=== PATIENT | female | born 1975 | race Caucasian/White ===

== ENCOUNTER → 2020-12-29 | Outpatient (REF) | payer OTHER, BC ==
[2020-12-29 18:57] LABS: APPEARANCE, URINE HAZY (CLEAR); BACTERIA, URINE AUTO 1+ (NEGATIVE); BILIRUBIN, URINE AUTO NEGATIVE (NEGATIVE); BLOOD, URINE BLOOD 2+ (NEGATIVE); COLOR, URINE YELLOW (YELLOW); GLUCOSE, URINE (UA) AUTO NEGATIVE (NEGATIVE); KETONE, URINE AUTO NEGATIVE (NEGATIVE); LEUKOCYTE ESTERASE, URINE AUTO 1+ (NEGATIVE); NITRITE, URINE AUTO NEGATIVE (NEGATIVE); PROTEIN, URINE AUTO 1+ mg/dL (NEGATIVE); RBC, URINE AUTO 29 /HPF (0-3); SPECIFIC GRAVITY URINE AUTO 1.013 (1.002-1.035); SQUAMOUS EPITHELIAL CELL UR AU 1 /HPF (0-6); UROBILINOGEN, URINE AUTO 0.2 mg/dL (0.0-2.0); WBC, URINE AUTO 23 /HPF (0-3)
== END ==
LOC: M SMT 18:07
PROVIDERS: ATTEND Nurse Practitioner Family
DX: R31.29 Other microscopic hematuria (principal)

== ENCOUNTER 2021-04-16 09:51 | Day surgery (SDC) | payer BC ==
[~2021-04-16] VITALS: Ht 165.1 cm; Wt 101.1 kg
[~2021-04-16 09:51] MED LIST: LIDOCAINE 1% MDV 20ML VIAL SQ PRN; LR 1,000 ML IV ONE; METF500T13 PO; OXYC5CAP56 PO; PANT40TA29 PO; VITMTA PO; ceFAZolin SOD 2 GM in IV 1 EA IV ONE
[2021-04-16] MEDS ORDERED: ONDANSETRON 4MG/2ML VIAL As Ordered ONE ×2 (10:03→12:42)
[2021-04-16] MEDS ORDERED: LIDOCAINE 2% 100MG/5ML SDV (FOR ANES.) As Ordered ONE (10:03)
[2021-04-16] MEDS ORDERED: dexameTHASONE 4 MG/ML 1ML VIAL (J1100 PER 1MG) As Ordered ONE (10:03)
[2021-04-16] MEDS ORDERED: propofoL 200 MG/20 ML VIAL As Ordered ONE (10:03)
[2021-04-16] MEDS ORDERED: MIDAZOLAM INJ 2MG/2ML VIAL (J2250 PER 1MG) As Ordered ONE (10:04)
[2021-04-16] MEDS ORDERED: fentaNYL 100 MCG/2 ML INJECTION (J3010) As Ordered ONE (10:04)
--- NOTE | 2021-04-16 10:20 | REP ---
INDICATION: KUB BEFORE SDC COMPARISON: None. TECHNIQUE: Supine view of the abdomen and pelvis. FINDINGS: 9 mm right renal calculus. Further evaluation of the urinary tract system is somewhat limited due to overlying bowel gas. No bowel obstruction or obvious perforation. Prior cholecystectomy. Skeletal structures intact. IMPRESSION: 9 mm right renal calculus. <Electronically signed by Garth Perez > 04/16/21 [id number]
[2021-04-16] MEDS ORDERED: HYDR-3713 PO (11:50)
--- NOTE | 2021-04-16 12:05 | ROOPDOC ---
[facility] Report Of Operation Report of Operation DATE OF PROCEDURE: 04/16/21 PREPROCEDURE DIAGNOSES: [right renal stones by u/s, intermittent right flank pain]. POSTPROCEDURE DIAGNOSES: [1 right renal stone seen using fluoroscopy]. PROCEDURE PERFORMED: [eswl right renal stone]. SURGEON: [Turecki. Cruz, CARCASS SPLITTER: [none], ANESTHESIA: [mac]. ESTIMATED BLOOD LOSS: Approximately [0] mL. COMPLICATIONS: [none]. REMARKS: [45yo wf with right renal stones. U/s shows 9mm and 6mm right renal stones. Eswl decided upon after discussion of options. No guarantees given. Informed consent obtained. Risks discussed including infection, pain, bleeding, scarring, failure of surgery, need for another surgery, injury to gu tract and others.]. FINDINGS: SPECIMENS REMOVED: [none] PROCEDURE NOTE: . DESCRIPTION OF PROCEDURE: [Met with pt in preop area and again discussed surgery. She wished to proceed. Pt brought to OR room. Supine position on lithotripter. Well padded. Preop kub reviewed. Obvious stone right kidney. Mac anesthesia started. Time out performed. Surgery done under An[facility]. Eswl performed. Fluoroscopy used intermittently. 2500 shocks. Pt tolerated all and left room in satisfactory condition. home, hydrocodone/acet, spoke to martha after surgery]. CORBY LANDIN MD Apr 16, 2021 12:05
[2021-04-16] MEDS ORDERED: fentaNYL 100 MCG/2 ML INJECTION (J3010) IV PRN (13:30)
[2021-04-16] MEDS ORDERED: LR 1,000 ML IV SCH (13:30)
[2021-04-16] MEDS ORDERED: ONDANSETRON 4MG/2ML VIAL IV PRN (13:30)
[2021-04-16 13:45] VITALS: BP 139/81
== END 2021-04-16 13:55 | disposition home or self-care (01) ==
LOC: M SDC 09:51
PROVIDERS: ATTEND Urology
DX: N20.0 Calculus of kidney (principal); G43.909 Migraine, unspecified, not intractable, without status migrainosus; K21.9 Gastro-esophageal reflux disease without esophagitis; G47.33 Obstructive sleep apnea (adult) (pediatric); Z88.8 Allergy status to other drugs, medicaments and biological substances; Z79.84 Long term (current) use of oral hypoglycemic drugs; Z79.899 Other long term (current) drug therapy; Z98.84 Bariatric surgery status
CPT/HCPCS: 50590; 74018; 81025; J0690; J1100; J2250; J2405; J3010

== ENCOUNTER 2021-04-19 19:51 | Emergency (ER) | payer BC ==
[~2021-04-19] VITALS: Ht 165.1 cm; Wt 100.9 kg
[~2021-04-19 19:51] MED LIST changes: +HYDR-3713 PO; -LIDOCAINE 1% MDV 20ML VIAL SQ PRN; -LR 1,000 ML IV ONE; -ceFAZolin SOD 2 GM in IV 1 EA IV ONE
[2021-04-19] MEDS ORDERED: ONDANSETRON 4MG/2ML VIAL IV ONE (21:00)
[2021-04-19] MEDS ORDERED: NS 1,000 ML IV ONE (21:00)
[2021-04-19] MEDS ORDERED: KETOROLAC 30 MG/ML 1ML VIAL IV ONE (21:00)
[2021-04-19 21:31] LABS: BASO % 0.1 % (0.0-1.0); EOS # 0.1 10^3/uL (0.0-0.5); EOS % 1.6 % (0.0-3.0); HEMATOCRIT 39.7 % (36.0-47.0); HEMOGLOBIN 13.6 g/dl (12.0-15.5); LYMPH # 1.4 10^3/uL (1.5-5.0); LYMPH % 20.2 % (24.0-44.0); MEAN CORPUSCULAR HEMOGLOBIN 29.8 pg (27.0-33.0); MEAN CORPUSCULAR HGB CONC 34.3 g/dl (32.0-36.5); MEAN CORPUSCULAR VOLUME 87.1 fl (80.0-96.0); MONO # 0.5 10^3/uL (0.0-0.8); MONO % 7.4 % (2.0-8.0); NEUTROPHILS # 4.8 10^3/uL (1.5-8.5); NEUTROPHILS % 70.4 % (36.0-66.0); PLATELET COUNT, AUTOMATED 156 10^3/uL (150-450); RED BLOOD COUNT 4.56 10^6/uL (4.00-5.40); WHITE BLOOD COUNT 6.8 10^3/uL (4.0-10.0)
[2021-04-19 21:56] LABS: ALBUMIN 3.7 GM/DL (3.2-5.2); BILIRUBIN,DIRECT 0.1 MG/DL (0.0-0.2); BILIRUBIN,TOTAL 0.5 MG/DL (0.2-1.0); TOTAL PROTEIN 7.6 GM/DL (6.4-8.2)
--- NOTE | 2021-04-19 23:27 | REPVR ---
PROCEDURE INFORMATION: Exam: CT Abdomen And Pelvis Without Contrast Exam date and time: 04/19/2021 9:03 PM Age: 45 years old Clinical indication: Abdominal pain; Prior surgery; Surgery date: Post-operative (0-2 days); Surgery type: Lithotripsy; Additional info: R flank pain, hematuria, S/P lithotripsy 3 days ago TECHNIQUE: Imaging protocol: Computed tomography of the abdomen and pelvis without contrast. Radiation optimization: All CT scans at this facility use at least one of these dose optimization techniques: automated exposure control; mA and/or kV adjustment per patient size (includes targeted exams where dose is matched to clinical indication); or iterative reconstruction. COMPARISON: CR Abdomen,Flat Plate KUB 04/16/2021 10:09 AM FINDINGS: Lungs: The imaged portions of the lung bases are clear. The lungs were not fully imaged. Heart: No cardiomegaly or pericardial effusion. Liver: Unremarkable. No liver lesion is identified. The contour of the liver is smooth. No hepatomegaly is noted. Gallbladder and bile ducts: There has been a cholecystectomy. There is no fluid collection in the gallbladder fossa. Pancreas: Unremarkable. No dilation of the main pancreatic duct is noted. Spleen: Unremarkable. No splenomegaly is noted. Adrenal glands: Normal. No adrenal mass is noted. Kidneys and ureters: There are three 4 mm calculi located [id number] in the right distal ureter at the level of the pelvis (images 108-110 of the axial series 201) and 2 mm and 3 mm calculi located jbor-hf-[id number] in the right distal ureter just proximal to the right ureterovesical junction (image 72 of the coronal series 702). There is mild to moderate right hydroureteronephrosis with right perinephric and right periureteral stranding. No stones are noted in the kidneys or left ureter. No renal lesion is identified. 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 The small bowel is unremarkable. There is no evidence for a bowel obstruction, diverticulosis, diverticulitis, colitis, perforated viscus, pneumatosis intestinalis, intussusception, or volvulus. Appendix: Normal. There is no evidence for appendicitis. Intraperitoneal space: There is a surgical clip in the pelvis. No free air. No ascites. No abscess. Retroperitoneal space: Unremarkable. Vasculature: The abdominal aorta is normal in caliber. Lymph nodes: No enlarged lymph nodes. Urinary bladder: There is a 2 mm calculus in the right posterior aspect of the urinary bladder just distal to the right ureterovesical junction. Reproductive: The uterus is anteverted. The left ovary contains a 1.8 cm dominant follicular cyst. The right ovary is unremarkable. Bones/joints: There is no fracture or dislocation. No suspicious osteolytic or osteoblastic lesion. There is a mild dextroscoliosis of the lumbar spine and degenerative changes in the lumbar spine. There is mild osteoarthritis of both hips. There is a well-corticated ossicle adjacent to the left acetabulum, which represents an os acetabulum. Soft tissues: There is a midline vertical incision scar in the anterior abdominal wall. There is a horizontal incision scar in the anterior pelvic wall. No hernia or soft tissue fluid collection is noted. IMPRESSION: Three 4 mm calculi located xebn-jy-hxer in the right distal ureter at the level of the pelvis, 2 mm and 3 mm calculi located pzcg-kk-tivz in the right distal ureter just proximal to the right ureterovesical junction, and a 2 mm calculus in the right posterior aspect of the urinary bladder just distal to the right ureterovesical junction with mild to moderate right hydroureteronephrosis. Electronically signed by: Reza Bautista On 04/19/2021 23:27:20 PM
[2021-04-19] MEDS ORDERED: FLOM0.4C39 PO (23:58)
[2021-04-19] MEDS ORDERED: CIPR-249 PO (23:58)
[2021-04-20] MEDS ORDERED: TAMSULOSIN 0.4 MG CAP PO ONE (00:05)
[2021-04-20] MEDS ORDERED: CIPROFLOXACIN 500MG TABLET PO ONE (00:05)
[2021-04-20 00:16] VITALS: BP 129/79
== END 2021-04-20 00:17 | disposition home or self-care (01) ==
LOC: M ED 19:51
DX: N20.1 Calculus of ureter (principal); R31.9 Hematuria, unspecified; R10.9 Unspecified abdominal pain; F17.200 Nicotine dependence, unspecified, uncomplicated; Z98.84 Bariatric surgery status; Z79.899 Other long term (current) drug therapy; Z88.8 Allergy status to other drugs, medicaments and biological substances
CPT/HCPCS: 74176; 80047; 80076; 81001; 83690; 84702; 85025; 87086; 96361; 96374; 96375; 99284; J1885; J2405

== ENCOUNTER → 2021-05-11 | Outpatient (REF) | payer BC ==
[~2021-05-11] MED LIST changes: +CIPR-249 PO; +FLOM0.4C39 PO
== END ==
LOC: M SMT 13:52
PROVIDERS: ATTEND Nurse Practitioner Women's Health
DX: N20.0 Calculus of kidney (principal)